=== PATIENT | female | born 1980 | race Caucasian/White ===

== ENCOUNTER 2016-11-18 15:16 | Emergency (ER) | payer OTHER ==
[~2016-11-18] VITALS: Ht 172.7 cm; Wt 70.0 kg
[~2016-11-18 15:16] MED LIST: CYCL-36 PO; KETO10 PO; Z.0.BCPILL PO
[2016-11-18 15:18] VITALS: BP 140/77; PULSE 85; RESP 12; TEMP 98.1; O2SAT 99
== END 2016-11-18 18:50 | disposition left against medical advice (07) ==
LOC: NED 15:16
DX: R10.9 Unspecified abdominal pain (principal)
CPT/HCPCS: 99281

== ENCOUNTER 2016-12-29 17:28 | Emergency (ER) | payer OTHER ==
[2016-12-29 18:29] LABS: BACTERIA, URINE RARE /hpf; BLOOD, URINE NEG (NEG); COMMENT (UR) CULT NOT INDICATED; CULTURE IF INDICATED CULT NOT INDICATED; GLUCOSE,URINE NEG (NEG); KETONE, URINE NEG (NEG); MUCUS URINE FEW /lpf (OCC); NITRITE,URINE NEG (NEG); PH, URINE 5.5 (5.0-8.5); SQUAMOUS EPITHELIAL CELL URINE 1 /hpf (0-5); URINE COLOR YELLOW (YELLW/STRAW)
--- NOTE | 2016-12-29 18:31 | PD ---
HPI Chief Complaint abdominal cramping Date Seen: Dec 29, 2016 Time Seen: 18:15 Travel History International Travel<30 Days: No Contact w/Intl Traveler<30Days: No Known Affected Area: No History of Present Illness HPI Pt is a 36 y/o with IUP at 17w1d who presents with c/o diffuse abdominal cramping since noon today. Pt states intermittent, fluctating intensity. took gas-x strips earlier today. denies heartburn. had normal BM today. feeling some vag/rectal pressure like she needs to have BM, but has not been able to go. denies dysuria. reports increased discharge with but no change in amount/consistency/odor. denies vag bleeding. Para: 0 : 2 Miscarriage: 1 History Past Medical History Narrative Medical lupus, MVP, endometriosis Obstetric History Obstetric History SAB at 13 weeks, D+C Past Surgical History Narrative Surgical knee surgery elbow surgery choanal atresia repair lsc x 2 D+C Family History Family History: Negative Social History Alcohol Use: No Tobacco Use: No Substance Abuse: No Allergies-Medications (Allergen,Severity, Reaction): Coded Allergies: No Known Allergies (Unverified , 12/13/11) Uncoded Allergies: SSIR (Adverse Reaction, Severe, 11/18/16) Home Meds Active Scripts Ketorolac Tromethamine (Toradol)10 Mg Tab10 Mg PO Q8 #15 Prov:JORGE LEYVA M.D. 12/13/11 Cyclobenzaprine Hcl (Flexeril)10 Mg Tab10 Mg PO TID #15 Prov:JORGE LEYVA M.D. 12/13/11 Reported Medications Miscellaneous ( Control Pills) Tab1 Tab PO DAILY 12/13/11 Review of Systems General / Constitutional: No: Fever, Weight Gain, Weight Loss, Chills, Other Eyes: No: Diploplia, Blurred Vision, Visual changes, Pain, Photophobia, Other HENT: No: Headaches, Vertigo, Dental Difficulties, Lightheadedness, Other Cardiovascular: No: Irregular Rhythm, Chest Pain or Discomfort, Palpitations, Tachycardia, Syncope, Varicosities, Edema, Cyanosis, Other Respiratory: No: Cough, Short of Breath, Wheezing, Other Gastrointestinal: Nausea, Abdominal Pain Genitourinary: No: Dysuria Musculoskeletal: No: Limited ROM, Weakness, Cramping, Edema, Pain, Other Skin: No Rash, No Itching, No Dryness, No Lumps, No Change in Pigmentation, No Change in Nails, No Alopecia, No Lesions, No Breast Lumps, No Breast Tenderness , No Breast Swelling, No Other Neurologic: No: Weakness, Dizziness, Syncope, Focal Abnormalities, Coordination Problem, Headache, Slurred Speech, Seizures, Other Psychiatric: No: Anxiety, Depression, Suicidal Ideations, Disorder of Thought, Mood Disorder, Substance Abuse, Homicidal Ideation, Other Physical Exam Narrative GENERAL: Well-nourished, well-developed patient. SKIN: Warm and dry. HEAD: Normocephalic and atraumatic. EYES: No scleral icterus. No injection or drainage. ENT: No nasal drainage noted. Mucous membranes pink. Airway patent. NECK: Supple, trachea midline. No JVD. CARDIOVASCULAR: Regular rate and rhythm without murmurs, gallops, or rubs. RESPIRATORY: Breath sounds equal bilaterally. No accessory muscle use. ABDOMEN/GI: Abdomen soft, non-tender, bowel sounds present, no rebound, no guarding Gravid GENITOURINARY: External Genitalia: intact and normal in appearance BUS glands: wnl Cervix: posterior Dilatation: closed Effacement: 0 Station: high Presentation: - Membranes: intact Uterine Contractions: - FHT's: 150s ] EXTREMITIES: No cyanosis or edema. BACK: Nontender without obvious deformity. No CVA tenderness. NEUROLOGICAL: Awake and alert. Motor and sensory grossly within normal limits. Five out of 5 muscle strength in all muscle groups. Normal speech. Data Data Vital Signs Reviewed: Yes (132/81, 88, 16, 97.6) Labs Laboratory Tests Test 12/29/16 18:14 Urine Color YELLOW Urine Turbidity CLEAR Urine pH 5.5 Urine Specific [place] 1.018 Urine Protein NEG mg/dL Urine Glucose (UA) NEG mg/dL Urine Ketones NEG mg/dL Urine Occult Blood NEG Urine Nitrite NEG Urine Bilirubin NEG Urine Urobilinogen LESS THAN 2.0 MG/DL Urine Leukocyte Esterase NEG Urine WBC 1 /hpf Urine Squamous Epithelial 1 /hpf Cells Urine Bacteria RARE /hpf Urine Mucus FEW /lpf Microscopic Urinalysis Comment CULT NOT INDICATED Clue Cells (Wet Prep) NONE SEEN Vaginal Trichomonas (Wet Prep) NONE SEEN Vaginal Yeast (Wet Prep) NONE SEEN MDM Narrative Course / MDM 36 y/o with IUP at 17 weeks with abdominal cramping suspect GI in origin no evidence of labor, UTI, or vaginitis rec. increase hydration, rest, can take gas-x and mylanta prn symptoms Diagnosis Diagnosis: Primary Impression: Abdominal cramping affecting , antepartum Additional Impression: 17 weeks gestation of Disposition: 01 DISCHARGE HOME Alondra Melendrez MD Dec 29, 2016 18:31
== END 2016-12-29 19:30 | disposition home or self-care (01) ==
LOC: HOBED 17:28
DX: O26.892 Other specified pregnancy related conditions, second trimester (principal); R10.9 Unspecified abdominal pain; Z3A.17 17 weeks gestation of pregnancy
CPT/HCPCS: 81001; 84112; 87210; 99284

== ENCOUNTER → 2017-02-15 | Outpatient (CLI) | payer OTHER | LOC: HPND 08:27 | PROVIDERS: ATTEND Family Medicine | DX: O09.522 Supervision of elderly multigravida, second trimester (principal); O99.89 Other specified diseases and conditions complicating pregnancy, childbirth and the puerperium; M32.9 Systemic lupus erythematosus, unspecified | CPT/HCPCS: 76811; 76825; 76827; 93325 ==

== ENCOUNTER 2017-03-23 13:53 | Emergency (ER) | payer OTHER ==
--- NOTE | 2017-03-23 15:11 | PD ---
HPI Chief Complaint contractions Date Seen: Mar 23, 2017 Travel History International Travel<30 Days: No Contact w/Intl Traveler<30Days: No Known Affected Area: No History of Present Illness HPI This is a 36y/o at 30w2d who was seen at [facility] f/u due to active Lupus during the . While there she c/o contractions about 4 in the last 24h and was referred to [facility] for evaluation. Pt denies contractions currently, no vaginal bleeding or leakage of fluid with reports of active movements. care with Dr. Bolanos in [place], no records available for review, care complicated by: 1. active LUPUS 2. seratonin syndrome 3. HSV 4. Mitral valve prolapse 5. h/o choanal atresia 6. Rheumatoid arthritis Para: 0 : 2 Miscarriage: 1 History Past Medical History Narrative Medical Lupus RA Seratonin syndrome HSV MVP right ring finger fracture Obstetric History Obstetric History 1 sab with D&C Past Surgical History Narrative Surgical D&C times 1 Laparoscopy for endometriosis ~ 9 years ago Choanal atresia surgery at age 11 Left elbow and left knee surgery in 2014 Allergies-Medications (Allergen,Severity, Reaction): Coded Allergies: No Known Allergies (Unverified , 12/13/11) Uncoded Allergies: SSIR (Adverse Reaction, Severe, 11/18/16) Home Meds Active Scripts Ketorolac Tromethamine (Toradol)10 Mg Tab10 Mg PO Q8 #15 Prov:JORGE LEYVA M.D. 12/13/11 Cyclobenzaprine Hcl (Flexeril)10 Mg Tab10 Mg PO TID #15 Prov:JORGE LEYVA M.D. 12/13/11 Reported Medications Miscellaneous ( Control Pills) Tab1 Tab PO DAILY 12/13/11 Review of Systems Except as stated in HPI: all other systems reviewed are Neg Physical Exam Narrative GENERAL: Well-nourished, well-developed patient. SKIN: Warm and dry. HEAD: Normocephalic and atraumatic. EYES: No scleral icterus. No injection or drainage. ENT: No nasal drainage noted. Mucous membranes pink. Airway patent. NECK: Supple, trachea midline. No JVD. CARDIOVASCULAR: Regular rate and rhythm without murmurs, gallops, or rubs. RESPIRATORY: Breath sounds equal bilaterally. No accessory muscle use. BREASTS: Bilateral exam showed no masses , no retractions, no nipple discharge. ABDOMEN/GI: Abdomen soft, non-tender, bowel sounds present, no rebound, no guarding Gravid to 30 weeks size GENITOURINARY: External Genitalia: intact and normal in appearance VE: closed/th/posterior Uterine Contractions: None FHT's: Category: 1, appropriate for gestational age EXTREMITIES: No cyanosis or edema. BACK: Nontender without obvious deformity. No CVA tenderness. NEUROLOGICAL: Awake and alert. Motor and sensory grossly within normal limits. Five out of 5 muscle strength in all muscle groups. Normal speech. Data Data Orders Vital Signs (Adult) .ON ADMISSION (03/23/17 15:02) ^ Labor Status (03/23/17 15:02) Urinalysis - C+S If Indicated (03/23/17 15:02) ^ Non Stress Test (03/23/17 15:02) Labs Laboratory Tests Test 03/23/17 14:55 Urine Color YELLOW Urine Turbidity CLEAR Urine pH 6.0 Urine Specific [place] 1.016 Urine Protein NEG mg/dL Urine Glucose (UA) 70 mg/dL Urine Ketones NEG mg/dL Urine Occult Blood NEG Urine Nitrite NEG Urine Bilirubin NEG Urine Urobilinogen LESS THAN 2.0 MG/DL Urine Leukocyte Esterase NEG Urine WBC 1 /hpf Urine Squamous Epithelial <1 /hpf Cells Urine Bacteria RARE /hpf Urine Mucus FEW /lpf Microscopic Urinalysis Comment CULT NOT INDICATED MDM Medical Record Reviewed: No Narrative Course / MDM 36y/o at 30w2d who presented for evaluation of contractions. -no evidence of PTL - status reassuring for gestational age Plan continue routine care as scheduled Diagnosis Diagnosis: Primary Impression: Abdominal cramping affecting , antepartum Additional Impression: with 30 completed weeks gestation Disposition: DISCHARGE HOME Key Elizondo MD Mar 23, 2017 15:11
[2017-03-23 15:31] LABS: BACTERIA, URINE RARE /hpf; BLOOD, URINE NEG (NEG); GLUCOSE,URINE 70 mg/dL (NEG); KETONE, URINE NEG (NEG); MUCUS URINE FEW /lpf (OCC); NITRITE,URINE NEG (NEG); SQUAMOUS EPITHELIAL CELL URINE <1 /hpf (0-5); URINE COLOR YELLOW (YELLW/STRAW)
[2017-03-23 15:36] LABS: COMMENT (UR) CULT NOT INDICATED; CULTURE IF INDICATED CULT NOT INDICATED
== END 2017-03-23 15:20 | disposition home or self-care (01) ==
LOC: HOBED 13:53
DX: O26.899 Other specified pregnancy related conditions, unspecified trimester (principal); R10.9 Unspecified abdominal pain; M32.9 Systemic lupus erythematosus, unspecified; M06.9 Rheumatoid arthritis, unspecified; Z3A.30 30 weeks gestation of pregnancy; Z79.899 Other long term (current) drug therapy
CPT/HCPCS: 59025; 81001

== ENCOUNTER → 2017-03-23 | Outpatient (CLI) | payer OTHER | LOC: HPND 13:16 | PROVIDERS: ATTEND Family Medicine | DX: O09.523 Supervision of elderly multigravida, third trimester (principal); O99.89 Other specified diseases and conditions complicating pregnancy, childbirth and the puerperium; M32.9 Systemic lupus erythematosus, unspecified; Z3A.30 30 weeks gestation of pregnancy | CPT/HCPCS: 76816 ==

== ENCOUNTER 2017-04-18 11:49 | Emergency (ER) | payer OTHER ==
--- NOTE | 2017-04-18 13:20 | PD ---
HPI Chief Complaint epigastric pain and associated SOB Date Seen: Apr 18, 2017 Time Seen: 12:45 (Sanchez Guthrie MD R1) Travel History International Travel<30 Days: No Contact w/Intl Traveler<30Days: No Known Affected Area: No (Sanchez Guthrie MD R1) History of Present Illness HPI 36 YO at 34 weeks with PMHx Lupus, HSVII, serotonin syndrome and migraines presents to the [facility] with epigastric pain and associated SOB after getting weekly BPP. Pain is positional in nature and lying on side (L>R) exacerbates the pain from 5/10 to 9/10 on pain scale. SOB is also positional and not related to activity. Pt denies CP, V/D, and DVT pain but endorses calf cramping during sleep. Pt is taking aspirin 81 mg daily for DVT ppx as prescribed by her PCP. Para: 0 : 2 Miscarriage: 1 (1st trimester) (Sanchez Guthrie MD R1) History Past Medical History Narrative Medical SLE, HSVII, migraines, serotonin syndrome (Sanchez Guthrie MD R1) Past Surgical History Narrative Surgical knee, endometriosis x2 (last one 8 yrs ago), D&C (Sanchez Guthrie MD R1) Family History Family History: Negative (Sanchez Guthrie MD) Social History Alcohol Use: Yes (until she found out she was ) Tobacco Use: No Substance Abuse: Yes (marijuana for migraines prior to finding out she was ) (Sanchez Guthrie MD R1) Allergies-Medications (Allergen,Severity, Reaction): Coded Allergies: SSRI-Serotonin Reuptake Inhib (Verified Adverse Reaction, Severe, 04/18/17) serotonin syndrome Home Meds Active Scripts Ketorolac Tromethamine (Toradol)10 Mg Tab10 Mg PO Q8 #15 Prov:JORGE LEYVA M.D. 12/13/11 Cyclobenzaprine Hcl (Flexeril)10 Mg Tab10 Mg PO TID #15 Prov:JORGE LEYVA M.D. 12/13/11 Reported Medications Miscellaneous ( Control Pills) Tab1 Tab PO DAILY 12/13/11 Review of Systems Except as stated in HPI: all other systems reviewed are Neg (Sanchez Guthrie MD R1) Physical Exam Narrative GENERAL: Well-nourished, well-developed patient. SKIN: Warm and dry. HEAD: Normocephalic and atraumatic. EYES: No scleral icterus. No injection or drainage. ENT: No nasal drainage noted. Mucous membranes pink. Airway patent. NECK: Supple, trachea midline. CARDIOVASCULAR: Regular rate and rhythm without murmurs, gallops, or rubs. RESPIRATORY: Breath sounds equal bilaterally. No accessory muscle use. ABDOMEN/GI: Abdomen soft, tender to palpation in epigastric area, bowel sounds present, no rebound, no guarding Gravid to 34 weeks size Fundal Height: 34 GENITOURINARY: deferred FHT's: Category: 1 Baseline: 140 Reactive: yes Variability: moderate Decels: 0 EXTREMITIES: No cyanosis or edema. NEUROLOGICAL: Awake and alert. Motor and sensory grossly within normal limits. Five out of 5 muscle strength in all muscle groups. Normal speech. (Sanchez Guthrie MD R1) Data Data Orders Vital Signs (Adult) .ON ADMISSION (04/18/17 13:13) ^ Labor Status (04/18/17 13:13) ^ Non Stress Test (04/18/17 13:13) ^ Hydration (04/18/17 13:13) Cbc No Diff, Includes Plts (04/18/17 13:13) (Sanchez Guthrie MD R1) MDM Medical Record Reviewed: Yes Narrative Course / MDM 36 YO at 34/0 weeks gestation with PMHx Lupus, HSVII, migraines, and serotonin syndrome presents from diagnostic US suite with epigastric pain 2/2 changes of gestation and Category 1 tracing. - CBC w/Diff w/no evidence of anemia or hemolysis - Encourage hydration - Continue BPP weekly as prescribed - D/C home (Sanchez Guthrie MD R1) Diagnosis Diagnosis: Primary Impression: Acid reflux Qualified Code: K21.9 - Gastroesophageal reflux disease, esophagitis presence not specified Disposition: 01 DISCHARGE HOME Condition: Good Collaborating MD Comments Patient seen and examined with resident. Agree with assessment and plan of care. (Hannah Nguyen MD) Sanchez Guthrie MD R1 Apr 18, 2017 13:20 Hannah Nguyen MD Apr 19, 2017 07:49
[2017-04-18 13:42] LABS: HEMATOCRIT 34.7 % (35.0-46.0); MEAN CELL VOLUME 82.3 FL (80.0-100.0); MEAN CORPUSCULAR HEMOGLOBIN 26.6 PG (27.0-34.0); MEAN CORPUSCULAR HGB CONC 32.4 % (32.0-36.0); PLATELET COUNT 200 TH/MM3 (150-450); RED BLOOD COUNT 4.22 MIL/MM3 (4.00-5.30); RED CELL DISTRIBUTION WIDTH 14.7 % (11.6-17.2); REVIEW FLAG FINAL; WHITE BLOOD COUNT 14.1 TH/MM3 (4.0-11.0)
== END 2017-04-18 14:04 | disposition home or self-care (01) ==
LOC: HOBED 11:49
DX: O99.613 Diseases of the digestive system complicating pregnancy, third trimester (principal); K21.9 Gastro-esophageal reflux disease without esophagitis; Z3A.34 34 weeks gestation of pregnancy
CPT/HCPCS: 85027; 99282

== ENCOUNTER 2017-04-23 11:01 | Emergency (ER) | payer OTHER ==
[~2017-04-23] VITALS: Ht 172.7 cm; Wt 81.6 kg
[2017-04-23] MEDS ORDERED: FERR325C PO (11:15)
[2017-04-23] MEDS ORDERED: PRENTAB75 (11:15)
[2017-04-23 11:27] VITALS: BP 126/78; PULSE 91
[2017-04-23] MEDS ORDERED: TERBUTALINE INJ 1 MG/ML AMP SQ ONE (11:30)
[2017-04-23 11:50] VITALS: PULSE 95
[2017-04-23 11:55] VITALS: PULSE 100
[2017-04-23] MEDS ORDERED: ONDANSETRON HCL 4 MG/2 ML VIAL IV PUSH ONE (12:00)
[2017-04-23] MEDS ORDERED: LACTATED RINGER'S 1000 ML INJ 1,000 ML IV SCH (12:00)
[2017-04-23 12:29] LABS: BACTERIA, URINE MANY /hpf; BLOOD, URINE NEG (NEG); COMMENT (UR) CULTURE INDICATED; CULTURE IF INDICATED CULTURE INDICATED; GLUCOSE,URINE NEG (NEG); KETONE, URINE NEG (NEG); MUCUS URINE FEW /lpf (OCC); NITRITE,URINE NEG (NEG); SQUAMOUS EPITHELIAL CELL URINE 1 /hpf (0-5); URINE COLOR LIGHT-YELLOW (YELLW/STRAW)
[2017-04-23] MEDS ORDERED: MACR100C2 PO (12:46)
[2017-04-23] MEDS ORDERED: TYLETAB34 PO (12:47)
--- NOTE | 2017-04-23 12:49 | PD ---
HPI Chief Complaint Abdominal pain Date Seen: Apr 23, 2017 Time Seen: 11:30 Travel History International Travel<30 Days: No Contact w/Intl Traveler<30Days: No Known Affected Area: No History of Present Illness HPI Patient is 36-year-old white female at 34 weeks gestation presents combining of contractions. She denies bleeding but does describe some leakage of fluid per vagina. Her amnio sure is negative today. heart rate tracing is reactive and initially she dee dee every 3 minutes. She is a patient not in the system here she's supposed to go to [place] for delivery, she is breech, she has history of lupus which is apparently causing her some pain Para: 0 : 2 Allergies-Medications (Allergen,Severity, Reaction): Coded Allergies: SSRI-Serotonin Reuptake Inhib (Verified Adverse Reaction, Severe, 04/18/17) serotonin syndrome Home Meds Reported Medications Ferrous Sulfate (Iron)325 Mg Rry256 Mg PO BIDPC #60 TAB Ref 0 04/23/17 [] No Conflict Check Caplet 04/23/17 Discontinued Reported Medications Miscellaneous ( Control Pills) Tab1 Tab PO DAILY 12/13/11 Discontinued Scripts Ketorolac Tromethamine (Toradol)10 Mg Tab10 Mg PO Q8 #15 Prov:JORGE LEYVA M.D. 12/13/11 Cyclobenzaprine Hcl (Flexeril)10 Mg Tab10 Mg PO TID #15 Prov:JORGE LEYVA M.D. 12/13/11 Review of Systems General / Constitutional: No: Fever, Weight Gain, Chills, Other Eyes: No: Diploplia, Blurred Vision, Visual changes, Pain, Photophobia HENT: No: Headaches, Vertigo, Lightheadedness Cardiovascular: No: Irregular Rhythm, Chest Pain or Discomfort, Palpitations, Tachycardia, Syncope, Varicosities, Edema, Cyanosis Respiratory: No: Cough, Short of Breath, Other Gastrointestinal: Abdominal Pain, No: Nausea, Vomiting, Diarrhea Genitourinary: No: Decreased Urinary Output, Oliguria Musculoskeletal: No: Limited ROM, Weakness, Cramping, Edema, Pain Skin: No Rash, No Itching, No Dryness, No Lumps, No Change in Pigmentation, No Change in Nails, No Alopecia, No Lesions Neurologic: No: Weakness, Dizziness, Syncope, Focal Abnormalities, Coordination Problem, Headache, Slurred Speech, Seizures Psychiatric: No: Depression, Suicidal Ideations, Homicidal Ideation Endocrine: No: Heat Intolerance, Cold Intolerance, Polydipsia, Polyuria, Other Physical Exam Vital Signs Date Time Temp Pulse Resp B/P Pulse Ox O2 Delivery O2 Flow Rate FiO2 04/23/17 11:55 100 04/23/17 11:50 95 04/23/17 11:27 91 126/78 Narrative GENERAL: Well-nourished, well-developed patient. SKIN: Warm and dry. HEAD: Normocephalic and atraumatic. EYES: No scleral icterus. No injection or drainage. ENT: No nasal drainage noted. Mucous membranes pink. Airway patent. NECK: Supple, trachea midline. No JVD. CARDIOVASCULAR: Regular rate and rhythm without murmurs, gallops, or rubs. RESPIRATORY: Breath sounds equal bilaterally. No accessory muscle use. BREASTS: Bilateral exam showed no masses , no retractions, no nipple discharge. ABDOMEN/GI: Abdomen soft, 1+tender, bowel sounds present, no rebound, no guarding Gravid to [-32] weeks size Fundal Height: [-32] GENITOURINARY: External Genitalia: intact and normal in appearance BUS glands: [-] Cervix: [-] Dilatation: [1-] Effacement: [40-] Station: [-2] Presentation: [breech-] Membranes: [intact ] Uterine Contractions: [Initially every 3 minutes however with tocolysis of IV fluid, terbutaline and fentanyl today contractions essentially stopped-] FHT's: Category: [1-] Baseline: [-133] Reactive: [-yes] Variability: [-mod] Decels: [-none] EXTREMITIES: No cyanosis or edema. BACK: Nontender without obvious deformity. No CVA tenderness. NEUROLOGICAL: Awake and alert. Motor and sensory grossly within normal limits. Five out of 5 muscle strength in all muscle groups. Normal speech. Data Data Orders Vital Signs (Adult) .ON ADMISSION (04/23/17 11:21) ^ Labor Status (04/23/17 11:21) Urinalysis - C+S If Indicated (04/23/17 11:21) Lactated Ringer's 1000 Ml Inj (Lr 1000 M (04/23/17 12:00) Terbutaline Inj (Brethine Inj) (04/23/17 11:30) Fentanyl Inj (Fentanyl Inj) (04/23/17 11:30) Ondansetron Inj (Zofran Inj) (04/23/17 12:00) Urine Culture (04/23/17 11:30) Labs Laboratory Tests Test 04/23/17 11:30 Urine Color LIGHT-YELLOW Urine Turbidity CLEAR Urine pH 7.0 Urine Specific [place] 1.007 Urine Protein NEG Urine Glucose (UA) NEG Urine Ketones NEG Urine Occult Blood NEG Urine Nitrite NEG Urine Bilirubin NEG Urine Urobilinogen LESS THAN 2.0 Urine Leukocyte Esterase NEG Urine RBC 1 Urine WBC 1 Urine Squamous Epithelial 1 Cells Urine Amorphous Sediment RARE Urine Bacteria MANY Urine Mucus FEW Microscopic Urinalysis Comment CULTURE INDICATED Date/Time Procedure Status Source Growth 04/23/17 11:30 Urine Culture Received Urine Clean Catch Pending MDM Interpretation(s) Patient is 36-year-old white female 34 weeks who presents clinically contractions. The she also complained of some leakage of fluid however amnio sure was negative today. Heart rate is reactive she initially is dee dee every 3 minutes but the IV fluid subcutaneous terbutaline and IV fentanyl. stopped Those contractions easily. Cervix is fingertip 40% and -2 and breech presentation patient knows that she was breech urinalysis showed a lot of bacteria but really nothing else but it did indicate culture and so that was enough to give her Macrobid 100 mg by mouth twice a day for week, she requests Tylenol No. 3 for pains and she was given a prescription for 10 of those. Plan Clamps patient to be at bedrest at home and increase her fluid intake use Tylenol and the Tylenol No. 3 as needed. Take her Macrobid, and see her OB doctor for further follow-up. Diagnosis Diagnosis: Primary Impression: Uterine contractions during Additional Impressions: No leakage of amniotic fluid into vagina Breech presentation Lupus (systemic lupus erythematosus) UTI (urinary tract infection) during Disposition: 01 DISCHARGE HOME Condition: Stable Scripts Acetaminophen-Codeine (Tylenol-Codeine #3)300-30 mg Tab1 Tab PO Q4H PRN (PAIN) # 10 TAB Ref 0 Prov:Donavon Rosario II, MD 04/23/17 Nitrofurantoin Monohydrate Macrocrystals (Macrobid)100 Mg [id number] Mg PO BID #14 CAP Ref 0 Prov:Donavon Rosario II, MD 04/23/17 Donavon Rosario II, MD Apr 23, 2017 12:48
== END 2017-04-23 17:23 | disposition home or self-care (01) ==
LOC: HOBED 11:01
DX: O47.03 False labor before 37 completed weeks of gestation, third trimester (principal); O32.1XX0 Maternal care for breech presentation, not applicable or unspecified; O23.43 Unspecified infection of urinary tract in pregnancy, third trimester; B96.89 Other specified bacterial agents as the cause of diseases classified elsewhere; O99.89 Other specified diseases and conditions complicating pregnancy, childbirth and the puerperium; M32.9 Systemic lupus erythematosus, unspecified; Z3A.34 34 weeks gestation of pregnancy
CPT/HCPCS: 59025; 81001; 84112; 87086; 96361; 96372; 96374; 96375; 99284; J2405; J3010; J3105; J7120

== ENCOUNTER 2017-05-03 15:36 | Emergency (ER) | payer OTHER ==
[~2017-05-03] VITALS: Ht 172.7 cm; Wt 86.6 kg
[~2017-05-03 15:36] MED LIST changes: -CYCL-36 PO; +FERR325C PO; -KETO10 PO; +MACR100C2 PO; +PRENTAB75; +TYLETAB34 PO; -Z.0.BCPILL PO
[2017-05-03 17:00] VITALS: BP 115/82; PULSE 102
[2017-05-03 17:05] VITALS: PULSE 99
[2017-05-03 17:22] VITALS: RESP 15; TEMP 98.2
[2017-05-03 17:30] VITALS: BP 120/85; PULSE 93; PULSE 95
[2017-05-03 17:35] VITALS: PULSE 98
[2017-05-03] MEDS ORDERED: ASPI81CH CHEW (17:39)
[2017-05-03] MEDS ORDERED: DOCUSATE SODIUM PO (17:39)
[2017-05-03 17:40] LABS: HEMATOCRIT 35.5 % (35.0-46.0); MEAN CELL VOLUME 81.7 FL (80.0-100.0); MEAN CORPUSCULAR HEMOGLOBIN 27.1 PG (27.0-34.0); MEAN CORPUSCULAR HGB CONC 33.2 % (32.0-36.0); PLATELET COUNT 202 TH/MM3 (150-450); RED BLOOD COUNT 4.34 MIL/MM3 (4.00-5.30); RED CELL DISTRIBUTION WIDTH 15.2 % (11.6-17.2); REVIEW FLAG FINAL
[2017-05-03 17:45] VITALS: BP 109/75; PULSE 95; PULSE 97
[2017-05-03 17:46] LABS: BACTERIA, URINE MOD /hpf; BLOOD, URINE NEG (NEG); COMMENT (UR) CULTURE INDICATED; CULTURE IF INDICATED CULTURE INDICATED; GLUCOSE,URINE NEG (NEG); HYALINE CAST, URINE 2 /lpf (RARE); KETONE, URINE 10 mg/dL (NEG); NITRITE,URINE NEG (NEG); PH, URINE 5.5 (5.0-8.5); SQUAMOUS EPITHELIAL CELL URINE 1 /hpf (0-5); URINE COLOR YELLOW (YELLW/STRAW)
--- NOTE | 2017-05-03 17:47 | PD ---
HPI Chief Complaint Rising blood pressure Date Seen: May 03, 2017 Time Seen: 16:30 (Marisol Mccloud MD R1) Travel History International Travel<30 Days: No Contact w/Intl Traveler<30Days: No Known Affected Area: No (Marisol Mccloud MD R1) History of Present Illness HPI Patient is a 36-year-old at 36 weeks and 1 day who presents to OB triage complaining of rising blood pressures. Patient states that she was borderline hypertensive pre- but has had systolic pressure of 100-110s throughout this . Today her pressures have ranged from 110-140s/80s. Patient states that she has gained 11 pounds over the last 6 days. She has been experiencing swelling of hands and feet 4 days. Patient has suffered from headaches 4-5 days; not relieved by Tylenol. Patient states that she has blurry vision; "I feel my eyes are dilated." She admits to fatigue, nausea and vomiting for the past week. Patient is also complaining of right flank pain 2 weeks. Patient denies vaginal bleeding, leakage and regular contractions; patient states that her uterus has been "irritated" for the past week. Positive movement. Of note, patient has been on bed rest for the past 3 months due to syncopal episodes. Patient started experiencing syncopal episodes at 20 weeks. Patient describes syncopal episodes as loss of consciousness for less than 10 seconds, followed by a period of inability to focus right eye, sweating, inability to remember events. The episodes last for 45 minutes total. She has been experiencing these episodes every other day. Para: 0 : 2 Miscarriage: 1 (6 weeks; D&C) (Marisol Mccloud MD R1) History Past Medical History Narrative Medical Lupus - possibly active at this time; in remission pre- Serotonin syndrome - 5-6 years ago Mitral valve prolapse Chronic migraines Hypertension - never medicated; 130-140s PAINTER DECORATOR: Endometriosis Abnormal Pap smear xmultiple; abnormal Pap smear at beginning of ; possible LEEP after delivery (Marisol Mccloud MD R1) Obstetric History Obstetric History G1 miscarriage; 6 weeks; D&C G2 current (Marisol Mccloud MD R1) Past Surgical History Narrative Surgical Nasal bone repair/alignment Endometriosis 2 LEEP 1 Left elbow - nerve rerouting Left knee - meniscus repair (Marisol Mccloud MD R1) Family History Family History: Negative (Marisol Mccloud MD R1) Social History Alcohol Use: No Tobacco Use: No Substance Abuse: Yes (marijuana, edible, at night for migraines, use before ) (Marisol Mccloud MD R1) Allergies-Medications (Allergen,Severity, Reaction): Coded Allergies: SSRI-Serotonin Reuptake Inhib (Verified Adverse Reaction, Severe, 04/18/17) serotonin syndrome Home Meds Active Scripts Acetaminophen-Codeine (Tylenol-Codeine #3)300-30 mg Tab1 Tab PO Q4H PRN (PAIN) # 10 TAB Ref 0 Prov:Donavon Rosario II, MD 04/23/17 Reported Medications [Docusate sodium ES] No Conflict Check1 Tab PO DAILY 05/03/17 Aspirin 81 Mg Chew81 Mg CHEW DAILY Ref 0 05/03/17 Ferrous Sulfate (Iron)325 Mg [id number] Mg PO BIDPC #60 TAB Ref 0 04/23/17 [] No Conflict Check Caplet 04/23/17 Review of Systems General / Constitutional: Weight Gain (11 pounds in 6 days) Eyes: Blurred Vision, Visual changes HENT: Headaches Cardiovascular: Syncope, No: Chest Pain or Discomfort, Palpitations Respiratory: No: Short of Breath Gastrointestinal: Nausea, Vomiting, Constipation, No: Diarrhea, Abdominal Pain Genitourinary: Frequency, No: Incontinence, Vaginal Bleeding Musculoskeletal: Edema, No: Weakness Skin: No Rash, No Itching, No Dryness, No Lumps, No Change in Pigmentation, No Change in Nails, No Alopecia, No Lesions Neurologic: Syncope (see H&P), Headache Psychiatric: No: Depression, Suicidal Ideations, Homicidal Ideation Endocrine: No: Heat Intolerance, Cold Intolerance, Polydipsia, Polyuria, Other (Marisol Mccloud MD R1) Physical Exam Vital Signs Date Time Temp Pulse Resp B/P Pulse Ox O2 Delivery O2 Flow Rate FiO2 05/03/17 17:05 99 05/03/17 17:00 102 115/82 05/03/17 17:00 102 Narrative GENERAL: Well-nourished, well-developed patient. SKIN: Warm and dry. HEAD: Normocephalic and atraumatic. EYES: No scleral icterus. No injection or drainage. ENT: No nasal drainage noted. Mucous membranes pink. Airway patent. NECK: Supple, trachea midline. No JVD. CARDIOVASCULAR: Regular rate and rhythm without murmurs, gallops, or rubs. RESPIRATORY: Breath sounds equal bilaterally. No accessory muscle use. ABDOMEN/GI: Abdomen soft, non-tender, bowel sounds present, no rebound, no guarding Gravid to 36 weeks size GENITOURINARY: External Genitalia: intact and normal in appearance Cervical check deferred. Membranes: Intact Uterine Contractions: None FHT's: Category: 1 Baseline: 147 Reactive: + Variability: Moderate Decels: None EXTREMITIES: No cyanosis. Foot/ankle edema noted bilaterally. BACK: Nontender without obvious deformity. No CVA tenderness. NEUROLOGICAL: Awake and alert. Motor and sensory grossly within normal limits. Five out of 5 muscle strength in all muscle groups. Normal speech. (Marisol Mccloud MD R1) Data Data Vital Signs Reviewed: Yes Orders Vital Signs (Adult) .ON ADMISSION (05/03/17 16:50) ^ Labor Status (05/03/17 16:50) ^ Hydration (05/03/17 16:50) Cbc No Diff, Includes Plts (05/03/17 16:50) Comprehensive Metabolic Panel (05/03/17 16:50) Uric Acid (05/03/17 16:50) (Marisol Mccloud MD R1) MDM Plan Patient is a 36-year-old at 36 weeks and 1 day who presents to OB triage complaining of rising blood pressures. Rule out pre-eclampsia * Monitor vital signs. BP has been wnl at this visit. Upon review of chart, patient's systolic pressures during this have ranged from 100-140s. * UA - negative for protein. * CBC - wnl * CMP - pending. (Marisol Mccloud MD R1) Diagnosis Diagnosis: Primary Impression: Hypertension affecting in third trimester Additional Impression: 36 weeks gestation of Disposition: DISCHARGE HOME Condition: Good Collaborating MD Comments Patient seen and evaluated with resident. I spoke with Dr Bolanos who is the patient's stroboroma operator who has her on the schedule for repeat . (Hannah Nguyen MD) Marisol Mccloud MD R1 May 03, 2017 17:47 Hannah Nguyen MD May 17, 2017 10:41
[2017-05-03 18:09] LABS: ALT (GPT) 12 U/L (10-53); ANION GAP 13 MEQ/L (5-15); AST (GOT) 10 U/L (15-37); BICARBONATE 21.4 MEQ/L (21.0-32.0); BLOOD UREA NITROGEN 10 MG/DL (7-18); CHLORIDE 103 MEQ/L (98-107); GLOMERULAR FILTRATION RATE 89 ML/MIN (>89); POTASSIUM 3.6 MEQ/L (3.5-5.1); SODIUM (NA) 137 MEQ/L (136-145)
[2017-05-03 18:11] LABS: ALKALINE PHOSPHATASE 107 U/L (45-117); TOTAL BILIRUBIN ADULT 0.1 MG/DL (0.2-1.0)
== END 2017-05-03 18:16 | disposition home or self-care (01) ==
LOC: HOBED 15:36
DX: O16.3 Unspecified maternal hypertension, third trimester (principal); R82.71 Bacteriuria; Z3A.36 36 weeks gestation of pregnancy
CPT/HCPCS: 36415; 59025; 80053; 81001; 84550; 85027; 87086